=== PATIENT | female | born 1980 | race Caucasian/White ===

== ENCOUNTER 2019-09-20 08:06 | Emergency (ER) | payer SELFPAY ==
[2019-09-20 08:08] VITALS: BP 162/94; PULSE 85; RESP 18; TEMP 36.8; O2SAT 96; BMI 46.9
--- NOTE | 2019-09-20 08:17 | ED.VISSUMM ---
- ER Visit Summary Date of Service: 09/20/19 Chief Complaint: Right hand laceration History of Present Illness: The patient is a 39 F right-hand dominant. Tetanus up-to-date. She was closing a window and there was a decorative holiday handle there when she shut the window her palm of her right hand hit the top of the candle shattering the plastic causing laceration of the palm of her right hand. She denies any numbness or tingling. No change in function. But there is a laceration that needs repaired. No other injuries. Physical Examination: Well-appearing middle-aged female. Vital signs are stable afebrile. H EENT exam unremarkable. Lungs are clear. Heart regular rhythm. Right hand she has full flexion extension all digits of the right hand. Normal cap refill. Normal touch sensation. There is a laceration in the palm of the right hand is approximately 2 half centimeters in length. It is a flap type of laceration. Currently there is no active bleeding. Again she has full flexion-extension all digits of the hand. I do not appear to be any flexor tendon injuries. She has no numbness. Test Results: None Emergency Department Course and Treatment: Procedure note: Right hand palm laceration. Patient monitored off in the sink. Local anesthetized with 1% lidocaine. Cleaned with Shur-Clens. Irrigated and explored. Washed out. Closed using 2 simple interrupted 5-0 Ethilon sutures. Proper hemostasis and wound closure was obtained.. Patient tolerated procedure well. She is instructed on wound care and suture removal. Treatment Plan: Wound care and suture removal. Return with any signs of infection. Disposition: Discharge Impression: Acute right hand (palm) palm laceration of 2.5 centimeters and ER repair. This note was generated with [employer] dictation software. It may contain incorrect words, spelling, and punctuation that were not noted in review of the chart prior to signing ED Disposition - Plan for ED Patient: Disposition: Home or Assisted Living Instructions: LACERATION, Extrem (Suture, Staple or Tape) Referrals: Alonso Vargas MD [STAFF PHYSICIAN] - 7 Days for suture removal Additional Instructions: Keep your hand clean and dry. Clean daily with soap and water or peroxide and water. Watch for signs of infection such as redness, pus, fever, streaks or significant swelling. If seen return. Tylenol and/or Motrin for pain. Suture removal in 7 to 10 days.
--- NOTE | 2019-09-20 08:21 | ED.DEP ---
ED Disposition - Plan for ED Patient: Disposition: Home or Assisted Living Instructions: LACERATION, Extrem (Suture, Staple or Tape) Referrals: Alonso Vargas MD [STAFF PHYSICIAN] - 7 Days for suture removal Additional Instructions: Keep your hand clean and dry. Clean daily with soap and water or peroxide and water. Watch for signs of infection such as redness, pus, fever, streaks or significant swelling. If seen return. Tylenol and/or Motrin for pain. Suture removal in 7 to 10 days.
== END 2019-09-20 09:17 | disposition home or self-care (01) ==
LOC: ED 08:40
PROVIDERS: Emergency Provider Emergency Medicine
DX: S61.411A Laceration without foreign body of right hand, initial encounter (principal); W26.8XXA Contact with other sharp object(s), not elsewhere classified, initial encounter; Y93.89 Activity, other specified
CPT/HCPCS: 12001; 99284